=== PATIENT | female | born 1970 | race Caucasian/White ===

== ENCOUNTER 2023-01-02 18:30 | Inpatient (IN) | payer BC ==
[~2023-01-02] VITALS: Ht 167.6 cm; Wt 100.5 kg
[~2023-01-02 18:30] MED LIST: heparin 10,000 units/1 ML INJ ONE; metoprolol tartrate 1mg/ml inj IV ONE
[2023-01-02] MEDS ORDERED: normal saline 1000ML IV soln IVB ONE (18:40)
[2023-01-02] MEDS ORDERED: heparin 25,000 UNIT/250ml bag 250 ML IV PRN (18:40)
[2023-01-02] MEDS ORDERED: heparin 10,000 units/1 ML INJ IV ONE (18:40)
[2023-01-02] MEDS ORDERED: metoprolol tartrate 1mg/ml inj IV ONE ×2 (18:45→19:05)
[2023-01-02] MEDS ORDERED: LIDOcaine 1% (10mg/ml) 2ml vial ONE (19:03)
[2023-01-02] MEDS ORDERED: fentaNYL/PF 50MCG/1 ML 2ML syringe ONE (19:04)
[2023-01-02] MEDS ORDERED: iohexol 350 MG/ML 50ML vial IV ONE (19:04)
[2023-01-02] MEDS ORDERED: heparin 1,000unit/ml 10ml vial 10 ML ONE (19:04)
[2023-01-02] MEDS ORDERED: verapamil 2.5 mg/ml inj IV ONE (19:04)
[2023-01-02] MEDS ORDERED: midazolam 1 mg/ML 2ml injection ONE (19:04)
[2023-01-02] MEDS ORDERED: iohexol 350MG/ML 100ml bottle IV ONE ×3 (19:04→19:58)
[2023-01-02] MEDS ORDERED: LIDOcaine 1% (10mg/ml)w/preservative inj. 20ml MDV ONE (19:05)
[2023-01-02] MEDS ORDERED: nitroGLYCERIN 500mcg/5mL D5W 10 ML IV ONE (19:07)
--- NOTE | 2023-01-02 19:17 | NUR ---
Just got back from taking patient to laboratory machinist with laboratory machinist RN. Pt on monitors. She seems to be doing very well. Her family is in the waiting room offside from laboratory machinist. I informed them that she is doing well and that Dr Craft will be out to see them after the procedure.
[2023-01-02 19:21] LABS: BASOPHILS % (AUTO) 0.4 % (0-1); EOSINOPHILS # (AUTO) 0.1 X10'3 (0-0.9); EOSINOPHILS % (AUTO) 0.6 % (0-6); HEMOGLOBIN 15.3 g/dl (12.0-16.0); LYMPHOCYTES # (AUTO) 3.2 X10'3 (1.1-4.8); LYMPHOCYTES % (AUTO) 30.6 % (21-51); MEAN CORPUSCULAR HEMOGLOBIN 29.9 PG (27.0-31.0); MEAN CORPUSCULAR HGB CONC 34.7 g/dL (33.0-36.5); MEAN PLATELET VOLUME 8.4 FL (7.4-10.4); MONOCYTES # (AUTO) 1.2 X10'3 (0-0.9); MONOCYTES % (AUTO) 11.2 % (2-12); NEUTROPHILS % (AUTO) 57.2 % (42-75); PLATELET COUNT 349 X10'3 (140-440); RED BLOOD COUNT 5.11 X10'6 (4.20-5.60); RED CELL DISTRIBUTION WIDTH 13.1 % (11.5-14.5); WHITE BLOOD COUNT 10.4 X10'3 (4.5-11.0)
[2023-01-02 19:29] LABS: APTT 28 SECONDS (22-32)
[2023-01-02 19:32] LABS: ALANINE AMINOTRANSFERASE 46 U/L (12-78); ALBUMIN 3.9 G/DL (3.4-5.0); ALKALINE PHOSPHATASE 67 IU/L (46-116); ANION GAP 8 (8-16); ASPARTATE AMINO TRANSFERASE 29 U/L (10-37); BILIRUBIN,TOTAL 0.2 MG/DL (0.1-1.0); BLOOD UREA NITROGEN 17 MG/DL (7-18); BUN/CREATININE RATIO 17.9 (10.0-20.0); CALCIUM 10.3 MG/DL (8.5-10.1); CHLORIDE 100 MMOL/L (99-107); CREATININE 0.95 MG/DL (0.40-0.90); GLUCOSE 128 MG/DL (70-104); POTASSIUM 3.1 MMOL/L (3.5-5.1); SODIUM 139 MMOL/L (135-145); TOTAL CARBON DIOXIDE 31.3 MMOL/L (24-32); eCRCL 63 ML/MIN; eGFR 61 ML/MIN
[2023-01-02 19:34] LABS: INR 0.9 INR
[2023-01-02 19:41] LABS: LIPASE 102 U/L (73-393); PRO BRAIN NATRIURETIC PEPTIDE 547 PG/ML (0-125)
[2023-01-02] MEDS ORDERED: ticagrelor 90mg tablet ONE (20:09)
[2023-01-02] MEDS ORDERED: potassium Cl 20 mEq SR tablet PO ONE (20:50)
[2023-01-02] MEDS ORDERED: temazepam 15mg capsule PO PRN (21:00)
[2023-01-02 21:30] VITALS: BP 146/97; PULSE 86; RESP 18; TEMP 97.8; O2SAT 94
[2023-01-02] MEDS ORDERED: aspirin 81mg tab.chew PO ONE (21:40)
[2023-01-02 21:45] VITALS: BP 149/88; PULSE 82
[2023-01-02] MEDS: normal saline 1000ml 1,000 ML IV SCH (21:45)
[2023-01-02 22:00] VITALS: BP 166/101; PULSE 83
[2023-01-02 22:01] LABS: C-REACTIVE PROTEIN 3.42 MG/DL (0.0-0.5)
[2023-01-02] MEDS ORDERED: atropine 0.1mg/ml 10ml syringe ONE (22:13)
[2023-01-02 22:15] VITALS: BP 145/94; PULSE 85
[2023-01-02] MEDS: metoprolol tartrate 25mg tablet PO SCH (22:28)
[2023-01-02 22:45] VITALS: BP 164/106; PULSE 92; RESP 16; TEMP 98.1; O2SAT 95
[2023-01-02 23:15] VITALS: BP 146/97; PULSE 86
[2023-01-02] MEDS ORDERED: ondansetron/PF 4mg/2ml inj IV PRN (23:25)
[2023-01-02] MEDS ORDERED: mag hydrox/Alum hydrox/simeth 30ml oral suspension PO PRN (23:25)
[2023-01-02] MEDS ORDERED: potassium Cl 40MEQ/1/2NS 520ml 520 ML IV PRN (23:25)
[2023-01-02] MEDS ORDERED: morphine 2 MG/ML inj. syringe IV PRN ×2 (23:25)
[2023-01-02] MEDS ORDERED: HYDROcodone/acetaminophen 10/325mg tab PO PRN (23:25)
[2023-01-02] MEDS ORDERED: HYDROcodone/acetaminophen 5mg/325mg tablet PO PRN (23:25)
[2023-01-02] MEDS ORDERED: ondansetron 4mg rapidly disintigrating tab PO PRN (23:25)
[2023-01-02] MEDS ORDERED: diphenhydrAMINE 50 mg/ml inj IV PRN (23:25)
[2023-01-02] MEDS ORDERED: potassium Cl 20 mEq SR tablet PO PRN ×2 (23:25)
[2023-01-02] MEDS ORDERED: magnesium hydroxide 30ml (MOM) UD suspension PO PRN (23:25)
[2023-01-02] MEDS ORDERED: bisacodyl 10mg suppository rectal RC PRN (23:25)
[2023-01-02] MEDS ORDERED: acetaminophen 325mg tablet PO PRN (23:25)
[2023-01-02] MEDS ORDERED: diphenhydrAMINE 25mg capsule PO PRN (23:25)
[2023-01-02] MEDS ORDERED: hydrALAZINE 20mg/ml inj. IV PRN (23:30)
[2023-01-02] MEDS: losartan 25mg tablet PO SCH (23:48)
[2023-01-03 00:15] VITALS: BP 142/89; PULSE 82
[2023-01-03] MEDS: HYDROchlorothiazide 12.5mg capsule PO SCH ×2 (00:34→12:00)
[2023-01-03 01:15] VITALS: BP 142/83; PULSE 81
[2023-01-03 02:15] VITALS: BP 123/86; PULSE 83
--- NOTE | 2023-01-03 03:23 | NUR ---
Received patient from dentures lab technician via stretcher at 2100. Alert and oriented x4, without any complaints of pain. Hep gtt at 1000 units/hour (dc'd at 2114) and NS at 100 cc per hour infusing. Right groin site with perclose dressing dry and intact, no bruising bleeding or swelling, Pedal pulses present. Patient flat in bed until 0100.
[2023-01-03] MEDS ORDERED: LOSA25TA41 PO (05:20)
[2023-01-03] MEDS ORDERED: HYDR12.55 PO (05:20)
--- NOTE | 2023-01-03 06:26 | NUR ---
Patient report given, questions answered & plan of care reviewed with DULCE Bryson
--- NOTE | 2023-01-03 06:32 | NUR ---
Patient in room PCU 3014. I have received report from SLOANE CARDONA and had the opportunity to ask questions and assume patient care.
[2023-01-03] MEDS ORDERED: normal saline 1000ml 1,000 ML IV ONE (07:00)
[2023-01-03 07:01] VITALS: BP 132/91; PULSE 77; RESP 12; TEMP 97.4; O2SAT 94
[2023-01-03] MEDS ORDERED: pantoprazole 40mg Tablet.DR PO SCH (07:30)
[2023-01-03 07:33] VITALS: BP_SYST 157; PULSE 81
[2023-01-03] MEDS: metoprolol tartrate 25mg tablet PO SCH (07:33)
[2023-01-03] MEDS: normal saline 1000ml 1,000 ML IV SCH (07:45)
[2023-01-03 08:00] VITALS: RESP 16
[2023-01-03] MEDS ORDERED: lisinopril 10 MG tablet PO SCH (08:00)
[2023-01-03] MEDS ORDERED: HYDROchlorothiazide 12.5mg capsule PO SCH (08:00)
[2023-01-03] MEDS ORDERED: K and/or MAG REPLACEMENT MC SCH (08:00)
[2023-01-03] MEDS ORDERED: atorvastatin 10mg tablet PO SCH (08:00)
[2023-01-03] MEDS ORDERED: ticagrelor 90mg tablet PO SCH (08:00)
[2023-01-03] MEDS ORDERED: docusate sod 100mg capsule PO SCH (08:00)
[2023-01-03] MEDS ORDERED: aspirin 81mg, enteric-coated 1 TAB TABLET.DR PO SCH (08:00)
[2023-01-03 08:24] LABS: BILIRUBIN,URINE NEGATIVE (Neg); CLARITY,URINE CLEAR (Clear); COLOR,URINE YELLOW (Yellow); GLUCOSE, URINE NEGATIVE (Neg); KETONES,URINE NEGATIVE (Neg); LEUKOCYTE ESTERASE ,URINE NEGATIVE (Neg); NITRITES, URINE NEGATIVE (Neg); OCCULT BLOOD,URINE NEGATIVE (Neg); PH,URINE 7.5 (4.8-8.0); PROTEIN,URINE NEGATIVE (Neg); UROBILINOGEN,URINE 0.2 E.U/dL (0.2-1.0)
[2023-01-03 08:26] LABS: UA COLLECTION TYPE NON-SPECIFIED
[2023-01-03 09:11] LABS: URINE AMPHETAMINE SCREEN NEGATIVE (Neg); URINE BARBITUATE SCREEN NEGATIVE (Neg); URINE BENZODIAZEPINES SCREEN POSITIVE (Neg); URINE CANNABINOID SCREEN NEGATIVE (Neg); URINE COCAINE SCREEN NEGATIVE (Neg); URINE METHADONE SCREEN NEGATIVE (Neg); URINE OPIATE SCREEN NEGATIVE (Neg); URINE PHENCYCLIDINE SCREEN NEGATIVE (Neg)
[2023-01-03] MEDS: losartan 25mg tablet PO SCH (12:00)
[2023-01-03 12:59] LABS: HEMOGLOBIN A1C 5.8 % (4.5-6.2)
[2023-01-03 13:03] LABS: BASOPHILS % (AUTO) 0.5 % (0-1); EOSINOPHILS % (AUTO) 0.6 % (0-6); HEMATOCRIT 42.5 % (35.0-45.0); HEMOGLOBIN 14.3 g/dl (12.0-16.0); LYMPHOCYTES # (AUTO) 1.7 X10'3 (1.1-4.8); MEAN CORPUSCULAR HEMOGLOBIN 29.2 PG (27.0-31.0); MEAN CORPUSCULAR HGB CONC 33.6 g/dL (33.0-36.5); MEAN PLATELET VOLUME 8.5 FL (7.4-10.4); MONOCYTES # (AUTO) 0.6 X10'3 (0-0.9); MONOCYTES % (AUTO) 9.6 % (2-12); NEUTROPHILS # (AUTO) 4.2 X10'3 (1.8-7.7); NEUTROPHILS % (AUTO) 63.3 % (42-75); PLATELET COUNT 344 X10'3 (140-440); RED BLOOD COUNT 4.88 X10'6 (4.20-5.60); RED CELL DISTRIBUTION WIDTH 13.1 % (11.5-14.5); WHITE BLOOD COUNT 6.6 X10'3 (4.5-11.0)
[2023-01-03 13:06] LABS: ALANINE AMINOTRANSFERASE 42 U/L (12-78); ALBUMIN 3.4 G/DL (3.4-5.0); ALBUMIN/GLOBULIN RATIO 0.9 (1.1-1.5); ALKALINE PHOSPHATASE 62 IU/L (46-116); ANION GAP 11 (8-16); ASPARTATE AMINO TRANSFERASE 26 U/L (10-37); BILIRUBIN,TOTAL 0.5 MG/DL (0.1-1.0); BLOOD UREA NITROGEN 9 MG/DL (7-18); BUN/CREATININE RATIO 11.4 (10.0-20.0); CALCIUM 9.6 MG/DL (8.5-10.1); CHLORIDE 101 MMOL/L (99-107); CREATININE 0.79 MG/DL (0.40-0.90); GLUCOSE 134 MG/DL (70-104); POTASSIUM 3.9 MMOL/L (3.5-5.1); SODIUM 140 MMOL/L (135-145); TOTAL CARBON DIOXIDE 27.9 MMOL/L (24-32); TOTAL PROTEIN 7.2 G/DL (6.4-8.2); eCRCL 76 ML/MIN; eGFR 76 ML/MIN
[2023-01-03 13:14] LABS: CHOL/HDL RATIO 5.7 (0.00-4.99); CHOLESTEROL 194 MG/DL (0-200); HDL CHOLESTEROL 34 MG/DL (35-60); LDL CHOLESTEROL 128 MG/DL (50-100); MAGNESIUM 1.8 MG/DL (1.5-2.4); PRO BRAIN NATRIURETIC PEPTIDE 1236 PG/ML (0-125); TRIGLYCERIDES 126 MG/DL (20-135)
[2023-01-03] MEDS ORDERED: TICA90TA PO (13:25)
[2023-01-03] MEDS ORDERED: LOP25T PO (13:25)
[2023-01-03] MEDS ORDERED: ATOR10TA PO (13:25)
[2023-01-03] MEDS ORDERED: ASPI-1071 PO (13:25)
--- NOTE | 2023-01-03 16:13 | NUR ---
PATIENT DISCHARGED HOME AFTER LABS WERE POSTED, PATIENT EDUCATED ON THE NEW MEDICATIONS AND FOLLOW UP. PATIENT BROUGHT IN DISCHARGE MEDICATIONS AT DISCHARGE TO MAKE SURE SHE HAD THE [place] UPON DISCHARGE. PATIENT IVS WERE TAKEN OUT AT DISCHARGE. PATIENT WAS TAKEN TO THE LOBBY WITH STUDENT RN AND TAKEN HOME IN PRIVATE VEHICLE. PATIENT AWARE OF FOLLOW UP AT THIS TIME WELL.
== END 2023-01-03 15:44 | disposition home or self-care (01) | DRG 246 ==
LOC: ER 18:31 → ED HOLD 20:43 → PCU 3S 21:17
PROVIDERS: ADMIT Internal Medicine Cardiovascular Disease; ATTEND Internal Medicine
PROC: 027034Z Dilation of Coronary Artery, One Artery with Drug-eluting Intraluminal Device, Percutaneous Approach (ICD-10-PCS; principal; 2023-01-02)
PROC: 4A023N7 Measurement of Cardiac Sampling and Pressure, Left Heart, Percutaneous Approach (ICD-10-PCS; 2023-01-02)
PROC: B2151ZZ Fluoroscopy of Left Heart using Low Osmolar Contrast (ICD-10-PCS; 2023-01-02)
PROC: B2111ZZ Fluoroscopy of Multiple Coronary Arteries using Low Osmolar Contrast (ICD-10-PCS; 2023-01-02)
PROC: B41F1ZZ Fluoroscopy of Right Lower Extremity Arteries using Low Osmolar Contrast (ICD-10-PCS; 2023-01-02)
DX: I21.09 ST elevation (STEMI) myocardial infarction involving other coronary artery of anterior wall (principal); I50.33 Acute on chronic diastolic (congestive) heart failure; I13.0 Hypertensive heart and chronic kidney disease with heart failure and stage 1 through stage 4 chronic kidney disease, or unspecified chronic kidney disease; N17.9 Acute kidney failure, unspecified; I25.10 Atherosclerotic heart disease of native coronary artery without angina pectoris; K21.9 Gastro-esophageal reflux disease without esophagitis; I21.19 ST elevation (STEMI) myocardial infarction involving other coronary artery of inferior wall; Z20.822 Contact with and (suspected) exposure to COVID-19; E66.9 Obesity, unspecified; N18.9 Chronic kidney disease, unspecified; E87.6 Hypokalemia; E78.5 Hyperlipidemia, unspecified; Z82.49 Family history of ischemic heart disease and other diseases of the circulatory system; Z68.35 Body mass index [BMI] 35.0-35.9, adult; Z90.49 Acquired absence of other specified parts of digestive tract
CPT/HCPCS: 93458; C9606; 36415; 71045; 76937; 80053; 80061; 80305; 81003; 83036; 83690; 83735; 83880; 84100; 84145; 84484; 85025; 85347; 85610; 85730; 86140; 87811; 93005; 96365; 96376; 99152; 99153; 99291; A6258; C1725; C1751; C1760; C1769; C1874; G0378; J0461; J1644; J2250; J3010; J3490; J7030; Q9967

== ENCOUNTER 2023-09-05 13:23 | Inpatient (IN) | payer BC ==
[~2023-09-05] VITALS: Ht 167.6 cm; Wt 98.0 kg
[~2023-09-05 13:23] MED LIST changes: +ASPI-1071 PO; +ATOR10TA PO; +LOP25T PO; +LOSA25TA41 PO; +TICA90TA PO; -heparin 10,000 units/1 ML INJ ONE; -metoprolol tartrate 1mg/ml inj IV ONE
[2023-09-05] MEDS ORDERED: TICA90TA2 PO (14:36)
[2023-09-05] MEDS: aspirin 325mg tablet PO ONE ×2 (15:20→19:21)
[2023-09-05] MEDS: ondansetron/PF 4mg/2ml inj IV ONE (15:20)
[2023-09-05 15:28] LABS: BASOPHILS % (AUTO) 0.3 % (0-1); EOSINOPHILS # (AUTO) 0.1 X10'3 (0-0.9); EOSINOPHILS % (AUTO) 0.9 % (0-6); HEMATOCRIT 44.7 % (35.0-45.0); HEMOGLOBIN 15.1 g/dl (12.0-16.0); LYMPHOCYTES # (AUTO) 1.6 X10'3 (1.1-4.8); LYMPHOCYTES % (AUTO) 20.6 % (21-51); MEAN CORPUSCULAR HEMOGLOBIN 29.2 PG (27.0-31.0); MEAN CORPUSCULAR HGB CONC 33.8 g/dL (33.0-36.5); MEAN CORPUSCULAR VOLUME 86.5 FL (78-98); MEAN PLATELET VOLUME 8.1 FL (7.4-10.4); MONOCYTES # (AUTO) 0.5 X10'3 (0-0.9); MONOCYTES % (AUTO) 6.5 % (2-12); NEUTROPHILS # (AUTO) 5.4 X10'3 (1.8-7.7); NEUTROPHILS % (AUTO) 71.7 % (42-75); PLATELET COUNT 278 X10'3 (140-440); RED BLOOD COUNT 5.17 X10'6 (4.20-5.60); RED CELL DISTRIBUTION WIDTH 13.7 % (11.5-14.5); WHITE BLOOD COUNT 7.6 X10'3 (4.5-11.0)
[2023-09-05 15:50] LABS: ALBUMIN 4.2 G/DL (3.4-5.0); ANION GAP 7 (8-16); BLOOD UREA NITROGEN 18 MG/DL (7-18); BUN/CREATININE RATIO 21.7 (10.0-20.0); CALCIUM 9.4 MG/DL (8.5-10.1); CHLORIDE 101 MMOL/L (99-107); CREATININE 0.83 MG/DL (0.40-0.90); GLUCOSE 114 MG/DL (70-104); POTASSIUM 3.5 MMOL/L (3.5-5.1); PRO BRAIN NATRIURETIC PEPTIDE 393 PG/ML (0-125); SODIUM 140 MMOL/L (135-145); TOTAL CARBON DIOXIDE 31.7 MMOL/L (24-32); eCRCL 73 ML/MIN; eGFR 72 ML/MIN
[2023-09-05] MEDS ORDERED: nitroGLYCERIN 0.4mg SUBLingual tab SL PRN ×2 (16:10→18:05)
[2023-09-05] MEDS ORDERED: morphine 2 MG/ML inj. syringe IV PRN (18:00)
[2023-09-05] MEDS ORDERED: magnesium hydroxide 30ml (MOM) UD suspension PO PRN (18:00)
[2023-09-05] MEDS ORDERED: magnesium 4gm in 100ml NS 100 ML IV PRN (18:00)
[2023-09-05] MEDS ORDERED: magnesium 2GM in 50ml NS 50 ML IV PRN (18:00)
[2023-09-05] MEDS ORDERED: potassium Cl 40MEQ/1/2NS 520ml 520 ML IV PRN (18:00)
[2023-09-05] MEDS ORDERED: potassium Cl 20 mEq SR tablet PO PRN ×2 (18:00)
[2023-09-05] MEDS ORDERED: magnesium Cl slow-release 64mg tablet PO PRN (18:00)
[2023-09-05] MEDS ORDERED: mag hydrox/Alum hydrox/simeth 30ml oral suspension PO PRN (18:00)
[2023-09-05] MEDS ORDERED: acetaminophen 325mg tablet PO PRN (18:00)
[2023-09-05] MEDS ORDERED: ondansetron/PF 4mg/2ml inj IV PRN (18:00)
[2023-09-05] MEDS ORDERED: metoprolol tartrate 1mg/ml inj IV PRN (18:05)
[2023-09-05] MEDS ORDERED: hydrALAZINE 20mg/ml inj. IV PRN (18:05)
[2023-09-05] MEDS ORDERED: aminophylline 250mg/10ml inj. IV PRN (18:05)
[2023-09-05] MEDS: ringers solution, lacted 1,000 ML IV SCH (18:45)
[2023-09-05 19:05] VITALS: BP 133/105; PULSE 77; RESP 18; TEMP 98.3; O2SAT 95
[2023-09-05] MEDS: metoprolol tartrate 50mg tablet PO SCH (19:47)
[2023-09-05] MEDS: ticagrelor 90mg tablet PO SCH (19:48)
[2023-09-05] MEDS: K and/or MAG REPLACEMENT MC SCH (20:00)
[2023-09-05 20:10] VITALS: RESP 15; O2SAT 97
[2023-09-05 22:00] VITALS: BP 163/91; PULSE 75; RESP 17; TEMP 97.6; O2SAT 99
[2023-09-06] VITALS (10 sets, daily range): BP systolic 133–186; BP diastolic 69–114; PULSE 63–93; RESP 14–18; TEMP 97–97.1; O2SAT 96–99
[2023-09-06 07:01] LABS: BASOPHILS % (AUTO) 0.5 % (0-1); EOSINOPHILS # (AUTO) 0.1 X10'3 (0-0.9); EOSINOPHILS % (AUTO) 1.5 % (0-6); HEMATOCRIT 44.2 % (35.0-45.0); HEMOGLOBIN 14.9 g/dl (12.0-16.0); LYMPHOCYTES # (AUTO) 1.9 X10'3 (1.1-4.8); LYMPHOCYTES % (AUTO) 32.8 % (21-51); MEAN CORPUSCULAR HEMOGLOBIN 29.2 PG (27.0-31.0); MEAN CORPUSCULAR HGB CONC 33.7 g/dL (33.0-36.5); MEAN CORPUSCULAR VOLUME 86.8 FL (78-98); MONOCYTES # (AUTO) 0.4 X10'3 (0-0.9); MONOCYTES % (AUTO) 7.6 % (2-12); NEUTROPHILS # (AUTO) 3.4 X10'3 (1.8-7.7); NEUTROPHILS % (AUTO) 57.6 % (42-75); PLATELET COUNT 259 X10'3 (140-440); RED BLOOD COUNT 5.09 X10'6 (4.20-5.60); RED CELL DISTRIBUTION WIDTH 13.5 % (11.5-14.5); WHITE BLOOD COUNT 5.9 X10'3 (4.5-11.0)
[2023-09-06 07:07] LABS: ALANINE AMINOTRANSFERASE 44 U/L (12-78); ALBUMIN 3.7 G/DL (3.4-5.0); ALBUMIN/GLOBULIN RATIO 1.2 (1.1-1.5); ALKALINE PHOSPHATASE 64 IU/L (46-116); ANION GAP 4 (8-16); ASPARTATE AMINO TRANSFERASE 15 U/L (10-37); BILIRUBIN,TOTAL 0.6 MG/DL (0.1-1.0); BLOOD UREA NITROGEN 16 MG/DL (7-18); BUN/CREATININE RATIO 19.5 (10.0-20.0); CALCIUM 8.9 MG/DL (8.5-10.1); CHLORIDE 105 MMOL/L (99-107); CREATININE 0.82 MG/DL (0.40-0.90); GLUCOSE 107 MG/DL (70-104); PHOSPHORUS 4.2 MG/DL (2.3-4.5); POTASSIUM 3.8 MMOL/L (3.5-5.1); SODIUM 142 MMOL/L (135-145); TOTAL PROTEIN 6.8 G/DL (6.4-8.2); eCRCL 73 ML/MIN; eGFR 73 ML/MIN
[2023-09-06] MEDS: pantoprazole 40mg Tablet.DR PO SCH (07:37)
[2023-09-06] MEDS: losartan 50mg tablet PO SCH (07:38)
[2023-09-06] MEDS: aspirin 81mg tab.chew PO SCH (07:40)
[2023-09-06] MEDS: regadenoson 0.4mg/5ml syringe IV PRN (09:45)
== END 2023-09-06 14:27 | disposition home or self-care (01) | DRG 313 ==
LOC: ER 13:24 → ORTHO 4S 17:31 → ED HOLD 17:31 → UNDOADMOB 17:31 → ED HOLD 19:12 → ORTHO 4S 19:12 → INTOOBSV 09-06 09:09 → OBSVTOIN 09-06 09:09 → UNDODISIN 09-06 14:27
PROVIDERS: ADMIT Internal Medicine; ATTEND Internal Medicine
PROC: 4A02XM4 Measurement of Cardiac Total Activity, External Approach (ICD-10-PCS; principal; 2023-09-06)
PROC: 3E033HZ Introduction of Radioactive Substance into Peripheral Vein, Percutaneous Approach (ICD-10-PCS; 2023-09-06)
DX: R07.89 Other chest pain (principal); I25.10 Atherosclerotic heart disease of native coronary artery without angina pectoris; I10 Essential (primary) hypertension; N95.9 Unspecified menopausal and perimenopausal disorder; E78.5 Hyperlipidemia, unspecified; E66.9 Obesity, unspecified; G47.33 Obstructive sleep apnea (adult) (pediatric); R73.03 Prediabetes; Z68.34 Body mass index [BMI] 34.0-34.9, adult; Z80.8 Family history of malignant neoplasm of other organs or systems; I25.2 Old myocardial infarction; Z82.49 Family history of ischemic heart disease and other diseases of the circulatory system; Z95.5 Presence of coronary angioplasty implant and graft; Z79.899 Other long term (current) drug therapy
CPT/HCPCS: 36415; 71045; 78452; 80048; 80053; 83735; 83880; 84100; 84484; 85025; 87081; 93005; 93017; 96360; 99285; A9500; G0378; J2785; J7120